=== PATIENT | male | born 1995 | race Caucasian/White ===

== ENCOUNTER → 2021-09-27 19:30 | Outpatient (CLI) | payer BC, SELFPAY | PROVIDERS: Referring Provider Physician Assistant; Visit Provider Physician Assistant | DX: K62.89 Other specified diseases of anus and rectum (principal) | CPT/HCPCS: 87177 ==

== ENCOUNTER → 2022-06-25 18:19 | Outpatient (CLI) | payer BC, SELFPAY ==
--- NOTE | 2022-06-25 18:23 | DI.RAD.S_ITS ---
PROCEDURE: XR NASAL BONES MIN 3V INDICATIONS: blunt trauma to nasal bridge TECHNIQUE: 3 views of the nasal bones acquired. COMPARISON: None. FINDINGS: Bones: No fractures or dislocations. Nasal septum is midline. Normal nasociliary nerve grooves are noted. Soft tissues: No suspicious soft tissue calcifications. IMPRESSION: No nasal bone fracture. Dictated by: Hector Middleton M.D. on 06/25/2022 at 20:28 Approved by: Hector Middleton M.D. on 06/25/2022 at 20:29
== END ==
PROVIDERS: Referring Provider Physician Assistant Medical; Visit Provider Physician Assistant Medical
DX: S09.92XA Unspecified injury of nose, initial encounter (principal); X58.XXXA Exposure to other specified factors, initial encounter
CPT/HCPCS: 70160